=== PATIENT | female | born 1955 | race African-American/Black ===

== ENCOUNTER 2021-12-29 11:53 | Emergency (ER) | payer MEDICARE, BC ==
[~2021-12-29] VITALS: Ht 152.4 cm; Wt 82.0 kg
[~2021-12-29 11:53] MED LIST: CYCL5TAB PO; TRIA1TAB92 PO
[2021-12-29 14:12] LABS: BASOPHILS % 0.8 % (0.0-2.0); EOSINOPHILS % 0.8 % (0.0-5.0); HEMOGLOBIN. 11.6 g/dL (12.0-16.0); LYMPHOCYTES % 42.6 % (20.0-50.0); MEAN CORPUSCULAR HEMOGLOBIN 25.4 pg (28.0-32.0); MEAN CORPUSCULAR VOLUME 78.7 fL (81.0-99.0); NEUTROPHILS % 48.8 % (40.0-76.0); PLATELET 191 x1000/uL (130-400); RED BLOOD CELL COUNT 4.57 mill/uL (4.2-5.4)
[2021-12-29 14:17] LABS: CHLORIDE 104 mEq/L (98-107)
[2021-12-29] MEDS ORDERED: KETOROLAC 15MG/ML VIAL IM ONE (14:30)
[2021-12-29] MEDS ORDERED: ACET-2708 MT (14:36)
[2021-12-29 15:08] VITALS: BP 148/74
== END 2021-12-29 15:10 | disposition home or self-care (01) ==
LOC: ER 12:02
DX: R07.89 Other chest pain (principal); M79.601 Pain in right arm; M79.18 Myalgia, other site; M54.9 Dorsalgia, unspecified; I10 Essential (primary) hypertension; Z88.5 Allergy status to narcotic agent
CPT/HCPCS: 36415; 71045; 80053; 83880; 84484; 85025; 85379; 93005; 96372; 99285; J1885

== ENCOUNTER 2024-03-07 10:08 | Emergency (ER) | payer MEDICARE, BC ==
[~2024-03-07] VITALS: Ht 152.4 cm; Wt 83.0 kg
[~2024-03-07 10:08] MED LIST changes: +ACET-2708 MT
[2024-03-07 10:27] VITALS: O2SAT 99
[2024-03-07] MEDS ORDERED: ACETAMINOPHEN 325MG TABLET PO ONE (10:45)
[2024-03-07 14:00] VITALS: BP 148/86; PULSE 81; RESP 17; TEMP 98.2
[2024-03-07] MEDS ORDERED: ACET-2708 MT (14:00)
[2024-03-07] MEDS ORDERED: LIDO700A15 TP (14:00)
[2024-03-07] MEDS: ACETAMINOPHEN 325MG TABLET PO NR (14:03)
== END 2024-03-07 14:33 | disposition home or self-care (01) ==
LOC: ER 10:08
DX: M25.561 Pain in right knee (principal); I10 Essential (primary) hypertension; Z87.19 Personal history of other diseases of the digestive system; Z79.899 Other long term (current) drug therapy
CPT/HCPCS: 73564; 99283

== ENCOUNTER 2024-11-05 17:48 | Emergency (ER) | payer MEDICARE, BC ==
[~2024-11-05] VITALS: Ht 152.4 cm; Wt 91.0 kg
[~2024-11-05 17:48] MED LIST changes: -CYCL5TAB PO; +CYCL5TAB3 PO; +LIDO700A15 TP
[2024-11-05 18:24] VITALS: O2SAT 99
[2024-11-05] MEDS: KETOROLAC 30MG/ML VIAL IM ONE (23:00)
[2024-11-05] MEDS: METHOCARBAMOL 500MG TABLET PO ONE (23:00)
[2024-11-05] MEDS ORDERED: LIDO700A15 TP (23:04)
[2024-11-05] MEDS ORDERED: IBUP-2029 MT (23:04)
[2024-11-05] MEDS ORDERED: METH-653 MT (23:04)
[2024-11-05 23:54] VITALS: BP 146/59; PULSE 85; RESP 19; TEMP 36.66960; O2SAT 99
== END 2024-11-05 23:56 | disposition home or self-care (01) ==
LOC: ER 17:48
DX: M54.40 Lumbago with sciatica, unspecified side (principal); M43.16 Spondylolisthesis, lumbar region; M43.17 Spondylolisthesis, lumbosacral region; M25.552 Pain in left hip; Z88.5 Allergy status to narcotic agent; Z79.899 Other long term (current) drug therapy
CPT/HCPCS: 99284; 73502; 72100; 96372; J1885